=== PATIENT | male | born 1945 | race Caucasian/White ===

== ENCOUNTER → 2024-07-15 08:29 | Outpatient (REF) | payer OTHER, SELFPAY ==
[2024-07-15 11:02] LABS: Blood Urea Nitrogen 19 mg/dl (9-20); Calcium 8.8 mg/dl (8.4-10.2); Carbon Dioxide 30 mmol/L (22-30); Chloride 101 mmol/L (98-107); Glucose 116 mg/dl (70-99); Potassium 4.9 mmol/L (3.5-5.1); Sodium 139 mmol/L (135-145); eGFR 46.48
== END ==
LOC: REG 08:29
PROVIDERS: ATTENDING PHYSICIAN Family Medicine; FAMILY PHYSICIAN Internal Medicine
DX: E87.5 Hyperkalemia (principal)
CPT/HCPCS: 36415; 80048

== ENCOUNTER → 2024-09-08 14:26 | Outpatient (REF) | payer OTHER, SELFPAY | LOC: HWRCS 14:26 | PROVIDERS: ATTENDING PHYSICIAN Family Medicine | DX: I50.812 Chronic right heart failure (principal) | CPT/HCPCS: 93306 ==

== ENCOUNTER → 2025-05-17 09:17 | Outpatient (REF) | payer OTHER, SELFPAY | LOC: RCS 09:17 | PROVIDERS: ATTENDING PHYSICIAN Internal Medicine Cardiovascular Disease; FAMILY PHYSICIAN Family Medicine | DX: R00.1 Bradycardia, unspecified (principal); I48.91 Unspecified atrial fibrillation; I10 Essential (primary) hypertension | CPT/HCPCS: 93306 ==

== ENCOUNTER 2025-06-20 09:42 | Day surgery (SDC) | payer OTHER, SELFPAY ==
[2025-06-20] VITALS (20 sets, daily range): BP systolic 147–171; BP diastolic 70–102; BMI 25.4
[2025-06-20 11:30] LABS: Glucose - Point of Care 170 mg/dl (70-99)
--- NOTE | 2025-06-20 15:50 | ITS.CL.PACE ---
Motorcycle Deliverer - Pacemaker Implant
Pacemaker Implant
Procedure Report:
Primary Care Doctor: Dr Scott Bourgeois
Procedure Date: 06/20/2025
Name of procedure:
1. Placement of a single-chamber pacemaker with left bundle area pacing lead for conduction system pacing
2. Subclavian venography
History:
1. Patient is a pleasant 80-year-old male with a past medical history significant for hypertension, diabetes mellitus type 2, hyperlipidemia, permanent atrial fibrillation on Xarelto, CKD 3A, remote history of CAD with prior PCI with symptomatic
bradycardia in the setting of permanent atrial fibrillation
2. Please refer to H&P for complete history.
Indication:
Symptomatic bradycardia, irreversible with permanent atrial fibrillation and need for rate control
Methods:
After informed consent was obtained, the patient was brought to the EP laboratory in a postabsorptive, nonsedated state. Peripheral IV access was established. Prophylactic antibiotics were administered prior to incision. Continuous ECG, blood
pressure, and pulse oximetry were initiated. Cardioversion patch electrodes were placed on the patient's chest and back. A grounding patch was applied to the skin. Sedation was administered by anesthesia services.
In order to define the extrathoracic portion of the subclavian vein and exclude significant venous obstruction or anomalous anatomy, subclavian venography was performed prior to the procedure. Using the patient's left peripheral IV, contrast was
injected and images were recorded. The left subclavian vein and SVC were found to be widely patent.
The left chest was prepared and draped in a sterile fashion. A time-out was performed. Local anesthesia was injected in the subcutaneous tissue in the infraclavicular area. An incision was made medial to the deltopectoral groove. The subcutaneous
tissue was dissected the level of the prepectoral fascia. A subcutaneous pocket was created. Under fluoroscopic guidance and with the assistance of the images from the venogram, venipuncture was made using micropuncture and modified Seldinger
technique. These were performed in the extrathoracic portion of the subclavian vein. Guidewire was passed and a peel-away sheath was placed and used to advance lead into the circulation.
Fluoroscopy was used to determine likely anatomic site for left bundle branch pacing. The Medtronic C315 sheath was used to deliver the Medtronic 3830 Selectsecure pacing lead with the helix exposed just exposed from the sheath tip during continuous
monitoring when pace mapping the septum during gentle clockwise rotation to obtain a paced QRS morphology of a W pattern in lead V1. Once the suspected optimal site was identified, lead deployment was performed with several rapid rotations as paced
QRS morphology was intermittently monitored until a paced QRS complex in lead V1 demonstrated development of an R wave (qR or rSR). Unipolar pacing impedance dropped by approximately 100-200 ohms suggesting it had reached the left ventricular
subendocardial. Stable VEgm injury current is present throughout lead position and at end of case. Final unipolar pacing impedance is 1040 Ohms. Unipolar pacing threshold is stable at 0.75 V @ 0.4 ms. The patient had pre-existing left bundle branch
block at baseline. Final conduction system paced QRS complex duration is 117 ms, LVAT is 69 ms, and peak V5 -> peak V1 timing is 54 ms. The C315 sheath was slit under fluoroscopy ensuring lead position and stability.
The pocket was flushed with antibiotic solution and hemostasis was assured. The generator was connected to the leads and placed inside the pocket. The device was sutured to the fascia. Floseal was applied. The wound was closed with 3 running
layers of absorbable suture, and steri-strips were applied. Dressing applied over steri-strips in standard fashion.
Following the procedure, the patient was taken to the recovery area in stable condition. A chest x-ray to be obtained post procedure as routine.
Lead parameters and device programming:
- RV Lead: Medtronic, Model 3830, #[id number]: Sensing 12.0 mV, Pacing threshold 0.5 V at 0.4 ms, Imp 931 Ohm (]Bipolar)
- Device: Medtronic, Model W1SR01 pacemaker, #[id number], programmed VVIR, 70 to 130 ppm, mode switch off
Conclusions:
1. Successful placement of a single-chamber pacemaker with conduction system pacing (LBBAP)
2. Subclavian venography
Recommendations:
- Admit
- Chest x-ray today, [facility] in AM
- IV antibiotics while the patient is admitted.
- OK to resume home medications as indicated
- Pressure dressing to be removed in AM, aquacell to remain until wound check
- Follow-up will be arranged in the office in 7-10 days post-discharge
Carlos Pandey DO, FACC, RS
Clinical Cardiac Wood Inspector
cc: Dr Scott Bourgeois
--- NOTE | 2025-06-20 17:18 | PTCARENOTE ---
Received patient post op after PPM left upper chest. Pressure dressing is dry and intact left upper chest, with immobilizer in place. 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 Oriented to the room and plan of care, family at the bedside and ordered his meals.
Voided in the urinal, reinforced post pacer activity restrictions, call figueroa in reach.
[2025-06-20 17:36] LABS: Glucose - Point of Care 108 mg/dl (70-99)
[2025-06-20 21:59] LABS: Glucose - Point of Care 106 mg/dl (70-99)
[2025-06-20] MEDS: ANCEF 5 IV (22:10)
--- NOTE | 2025-06-20 23:47 | PTCARENOTE ---
Received pt from previous shift, AAOx3, V-paced on the monitor with a BBB, VSS. Pt is post pacemaker procedure, dressing is CDI, pt has left arm immobilizer on. Pt instructed on arm restrictions and pt verbalized understanding. Pt has mild
discomfort in his incision but did not want any pain medication. Pt now in bed with call figueroa in reach and instructed to call if he needs to get up, pt verbalized understanding.
[2025-06-21 04:13] VITALS: BP 161/84
[2025-06-21 04:21] VITALS: BP 159/88
[2025-06-21 05:12] LABS: Blood Urea Nitrogen 27 mg/dl (9-20); Calcium 8.5 mg/dl (8.4-10.2); Carbon Dioxide 23 mmol/L (22-30); Chloride 107 mmol/L (98-107); Estimated Creatinine Clearance 40 ml/min; Glucose 109 mg/dl (70-99); Magnesium 2.2 mg/dl (1.6-2.3); Potassium 4.1 mmol/L (3.5-5.1); Sodium 137 mmol/L (135-145); eGFR 54.85
[2025-06-21 05:24] LABS: Hematocrit 41.0 % (39.0-52.0); Hemoglobin 14.3 g/dL (13.0-18.0); Mean Corp Hgb Conc. 34.9 g/dL (33.0-37.0); Mean Corpuscular Volume 89.5 fL (80.0-94.0); Platelet Count 196 10^3/uL (130-400); Red Cell Dist. Width 12.6 % (11.5-14.5)
[2025-06-21] MEDS: ANCEF 5 IV (06:09)
[2025-06-21 07:22] VITALS: BP 140/87
[2025-06-21] MEDS: COZAAR 50 MG PO (07:42)
[2025-06-21] MEDS: TYLENOL 650 MG PO (07:43)
[2025-06-21] MEDS: NORVASC 10 MG PO (07:43)
[2025-06-21] MEDS: LIPITOR 20 MG PO (07:43)
[2025-06-21] MEDS: FARXIGA 10 MG PO (07:48)
[2025-06-21 08:28] LABS: Glucose - Point of Care 131 mg/dl (70-99)
--- NOTE | 2025-06-21 09:04 | W.PN.CARDCBS ---
Addendum entered and electronically signed by Colin Kirkpatrick MD 06/21/25 09:46:
Patient seen and examined
Reviewed patient's chest x-ray
Appropriate ventricular pacing and sensing on telemetry
No pneumothorax on chest x-ray
Exam:
Left-sided deltopectoral groove site clean dry and intact
Awake alert and oriented
Nonfocal neurologically
No chest pain or pressure
Remainder as per MUSSEL OPENER note
80-year-old male with a past medical history significant for hypertension, diabetes mellitus type 2, hyperlipidemia, permanent atrial fibrillation on Xarelto, CKD 3A, remote history of CAD with prior PCI with symptomatic bradycardia in the setting
of permanent atrial fibrillation
Impression:
Symptomatic bradycardia
post single chamber left bundle area PPM 06/20/25
permanent atrial fibrillation
HTN
Hyperlipidemia
CKD 3a
DM2
CAD remote PCI
colon cancer post resection 2014
Plan:
post PPM feels good
site stable
tele Vpaced
CXR no PTX, lead in good position
Will resume Xarelto tonight
Hold Metformin post procedure, Cr stable 1.3 post IV contrast
resume on Sat am
Activity restrictions reviewed
Incision check at [facility] 1 week
home today
Original Note:
Today's Communication / Plan
-
post PPM, stable for d/c home
Impression / Plan
-
Primary Care Doctor: Dr Scott Bourgeois
Primary sales and marketing manager: Carlos Pandey, DO
80-year-old male with a past medical history significant for hypertension, diabetes mellitus type 2, hyperlipidemia, permanent atrial fibrillation on Xarelto, CKD 3A, remote history of CAD with prior PCI with symptomatic bradycardia in the setting
of permanent atrial fibrillation
Impression:
Symptomatic bradycardia
post single chamber left bundle area PPM 06/20/25
permanent atrial fibrillation
HTN
Hyperlipidemia
CKD 3a
DM2
CAD remote PCI
colon cancer post resection 2014
Plan:
post PPM feels good
site stable
tele Vpaced
CXR no PTX, lead in good position
Will resume Xarelto tonight
Hold Metformin post procedure, Cr stable 1.3 post IV contrast
resume on Sat am
Activity restrictions reviewed
Incision check at [facility] 1 week
home today
Progress Note - Theoretical Physicist
Subjective
Date of Service: June 21, 2025
denies cp, sob, incisional pain, did not sleep at all
Objective
Labs:
06/21/25 04:19
06/21/25 04:19
Labs
Hgb 14.3 g/dL (13.0-18.0) 06/21/25 04:19
Hct 41.0 % (39.0-52.0) 06/21/25 04:19
Plt Count 196 10^3/uL (130-400) 06/21/25 04:19
Sodium 137 mmol/L (135-145) 06/21/25 04:19
Potassium 4.1 mmol/L (3.5-5.1) 06/21/25 04:19
BUN 27 mg/dl (9-20) H 06/21/25 04:19
Creatinine 1.3 mg/dL (0.7-1.3) 06/21/25 04:19
Glucose 109 mg/dl (70-99) H 06/21/25 04:19
Vital Signs and I&O:
Vital Signs
Temp Pulse Resp BP Pulse Ox
98.7 F 70 20 140/87 97
06/21/25 07:22 06/21/25 07:22 06/21/25 07:22 06/21/25 07:22 06/21/25 08:00
Vital Signs
Temp Pulse Resp BP Pulse Ox
98.7 F 70 20 140/87 97
06/21/25 07:22 06/21/25 07:22 06/21/25 07:22 06/21/25 07:22 06/21/25 08:00
Intake & Output
06/19/25 06/20/25 06/21/25 06/22/25
06:59 06:59 06:59 06:59
Intake Total 240 / 240
Output Total 1550 / 1550
Balance -1310 / -1310
Physical Exam
Physical Exam
NAD, AOX3
S1, S2, RRR
CTAB, non labored, no wheeze
SNTND bsx4
L CW site c/d/i no HT, pressure dressing removed
[2025-06-21 09:18] LABS: Glycohemoglobin (HgbA1c) 7.7 % (4.0-5.9)
--- NOTE | 2025-06-21 10:34 | CM ---
Chart reviewed. Patient is independent of ADLS, lives with his in a [address] [facility], [address] [facility], does not use an assistive device but has a SPC if needed. Plan is for the patient to return home.
[2025-06-21 11:30] VITALS: BP 132/84
--- NOTE | 2025-06-21 11:46 | PTCARENOTE ---
Pt received this am with c/o of mild incisional pain. Medicated with 2 tylenol with relief. Left chest pacer site with Pressure dressing intact and later removed by INTERVENTIONAL PHYSIATRIST. Pt discharged to home with his son, discharge instructions given and reviewed
with pt and his son who verbalized good understanding and had no questions.
--- NOTE | 2025-06-21 12:36 | W.DS.TRANS ---
DC Summary - Assistant Manager Pt
-
Discharge Instructions:
Sleep Apnea Risk Intermediate
Discharge Diagnosis/Procedures Pacemaker implant
Diet Low Cholesterol
Driving Restrictions No driving for 1 week
Bathing Restrictions OK to Shower
Instructions:
Stand-Alone Forms: DC Inst - Implanted Device
Changes to Home Medications: No
Discharge Medications:
DC Medications w/original date entered in [facility]
amlodipine 10 mg tablet 10 mg PO DAILY 06/20/25
atorvastatin 20 mg tablet 20 mg PO DAILY 06/20/25
empagliflozin 25 mg tablet (Jardiance) 25 mg PO DAILY 06/20/25
losartan 50 mg tablet 50 mg PO DAILY 06/20/25
metformin 500 mg tablet,extended release 24 hr 500 mg PO BID 06/20/25
Held on 06/21/25. Instructions: Resume on 06/23/25.
rivaroxaban 20 mg tablet (Xarelto) 20 mg PO QPM 06/20/25
Home Medication Changes
Pending Results: No
== END 2025-06-21 11:44 | disposition home or self-care (01) ==
LOC: CATH 09:42
PROVIDERS: Nurse Practitioner Adult Health; ATTENDING PHYSICIAN Internal Medicine Cardiovascular Disease; FAMILY PHYSICIAN Family Medicine
DX: R00.1 Bradycardia, unspecified (principal); I12.9 Hypertensive chronic kidney disease with stage 1 through stage 4 chronic kidney disease, or unspecified chronic kidney disease; I25.10 Atherosclerotic heart disease of native coronary artery without angina pectoris; Z79.01 Long term (current) use of anticoagulants; I48.21 Permanent atrial fibrillation; E78.5 Hyperlipidemia, unspecified; E11.22 Type 2 diabetes mellitus with diabetic chronic kidney disease; N18.31 Chronic kidney disease, stage 3a; Z95.5 Presence of coronary angioplasty implant and graft; Z79.84 Long term (current) use of oral hypoglycemic drugs; Z79.899 Other long term (current) drug therapy
CPT/HCPCS: 33207; 71045; 80048; 82962; 83036; 83735; 85027; 93005; C1769; C1786; C1887; C1898; Q9967